=== PATIENT | female | born 1965 | race Two or more races ===

== ENCOUNTER 2018-11-19 13:17 | Emergency (ER) | payer MEDICAID, OTHER ==
[~2018-11-19] VITALS: Ht 165.1 cm; Wt 71.7 kg
[2018-11-19] MEDS ORDERED: MORPHINE SULFATE 4 MG/ML SYR/VIAL IV ONE (14:00)
[2018-11-19] MEDS ORDERED: PROMETHAZINE HCL 25 MG/ML 1ML IV ONE (14:00)
[2018-11-19 14:39] LABS: Eosinophils # (auto) 0.2 uL; Eosinophils % (auto) 2.2 % (0.0-7.0); Hematocrit 41.2 % (36.0-46.0); Hemoglobin 14.1 g/dL (12.2-16.2); Monocytes # (auto) 0.4 uL; Neutrophils # (auto) 3.6 uL; Red Blood Cells 4.53 10^6/uL (4.0-5.20)
[2018-11-19 14:41] LABS: Basophils # (auto) 0.2 uL; Basophils % (auto) 2.6 % (0.0-2.0); Lymphocytes # (auto) 2.6 uL; Lymphocytes % (auto) 37.6 % (10.0-50.0); Mean Corpuscular Hemoglobin 31.2 pg (28.0-32.0); Mean Corpuscular Hgb Conc. 34.3 g/dL (32.0-36.0); Mean Corpuscular Volume 90.8 fL (80.0-100.0); Monocytes % (auto) 5.8 % (0.0-12.0); Neutrophils % (auto) 51.8 % (37.0-80.0); Nucleated Red Blood Cells % 0.1 %; Platelet Count (auto) 666 10^3/uL (140-450)
[2018-11-19] MEDS ORDERED: SODIUM CHLORIDE 0.9% 1,000 ML IV ONE (14:45)
[2018-11-19 14:48] LABS: Calcium 9.2 mg/dL (8.5-10.1)
[2018-11-19 14:50] LABS: BUN/Creatinine Ratio 24.3
[2018-11-19 14:53] LABS: Bilirubin, Total 0.6 mg/dL (0.2-1.0); Total Protein 8.4 g/dL (6.4-8.2)
[2018-11-19 15:15] LABS: Urine Bacteria NONE SEEN /hpf (None Seen); Urine Blood 2+ /uL (Negative); Urine Mucus FEW (None Seen); Urine Specific Gravity 1.031 (1.001-1.035); Urine WBC 12 /hpf (0 - 5)
[2018-11-19] MEDS ORDERED: cefTRIAXone 1GM/50ML D5W 50 ML IV ONE (16:00)
[2018-11-19 16:43] VITALS: BP 122/77
== END 2018-11-19 17:37 | disposition home or self-care (01) ==
LOC: ER 13:22
DX: N13.1 Hydronephrosis with ureteral stricture, not elsewhere classified (principal); N39.0 Urinary tract infection, site not specified; E03.9 Hypothyroidism, unspecified; F17.210 Nicotine dependence, cigarettes, uncomplicated; Z93.6 Other artificial openings of urinary tract status; Z87.442 Personal history of urinary calculi
CPT/HCPCS: 36415; 51702; 74176; 80053; 81001; 85025; 96361; 96365; 96375; 99284; J0696; J2270; J2550; J7030